=== PATIENT | male | born 1930 | race Caucasian/White ===

== ENCOUNTER 2016-09-04 06:08 | Observation (INO) | payer OTHER ==
--- NOTE | ~2016-09-04 | HP ---
History And Physical [facility] [id number] [place]. [address] NAME: JEFFERY LUGO : 34 STATUS : ADM Erin PAT#: [id number] AGE: 86 ADM/REG DATE : 09/04/16 MR#: [id number] REPORT SERV DATE: 09/04/16 DICTATED BY: SOFIE TOBIAS DATE: 09/04/16 REPORT STATUS : Draft TRANSCRIBED BY: MODL DATE: 09/04/16 DATE OF ADMISSION: 09/04/2016 POINT OF ENTRY: [facility] [place] Emergency Department. CHIEF COMPLAINT: Altered mental status, elevated blood pressure. HISTORY OF PRESENT ILLNESS: Mr. Lugo is an 86-year-old gentleman with a history of coronary artery disease with prior PCI, hypertension, history of stroke, as well as chronic kidney disease stage 3, who was brought to the emergency department today by family for reports of acute onset of altered mental status in the setting of elevated blood pressure. The patient was admitted to the Hospitalist Service in June of this year for very similar circumstances of elevated blood pressure and encephalopathy. It was ultimately felt that this was due to hypertensive encephalopathy and hypertensive emergency. With correction of the patient's blood pressure the patient's mental status slowly improved back to his baseline. Majority of history today is obtained by the patient's grandson who is at bedside as the patient is unable to provide any history to me at this time. He states that he was in his usual state of health until earlier on Saturday, when he started to notice that the patient was having multiple episodes of hot flashes. This is atypical symptom for him and his blood pressure is elevated. They checked his blood pressure multiple times throughout the day. Blood pressures were tubular ranging in systolics of 180s to 220s. Sharri did report that he did miss a single dose of Coreg on Saturday evening as the patient refused to take the medication. Sharri was then awoke at approximately 3 o'clock this morning by the sound of TV blurring, found his grandfather in front of the TV, very confused and altered. Initial evaluation in the emergency department notable for a blood pressure of 218/97. CT scan of the brain was negative for any acute changes. His creatinine was mildly elevated above baseline of 1.7, glucose is 256; troponin 0.17; white count of 12.9. Urinalysis is pending. Blood pressure did improve on its own without any intervention to systolics of 170s to 180s. The patient was subsequently admitted to the Hospitalist Service for further evaluation and management. REVIEW OF SYSTEMS: Unable to be obtained secondary to the patient's altered mental status. PREVIOUS MEDICAL HISTORY: 1. Coronary artery disease with prior PCI. 2. History of CVA. 3. Chronic kidney disease, stage 3. Baseline creatinine of approximately 1.3 to 1.5. 4. Insulin-dependent diabetes mellitus, type 2. Hemoglobin A1c of 8.9. 5. Nephrolithiasis. 6. BPH. 7. Hypertension. History And Physical [address] [address] NAME: JEFFERY LUGO : 32 STATUS : ADM Erin PAT#: [id number] AGE: 86 ADM/REG DATE : 09/04/16 MR#: [id number] REPORT SERV DATE: 09/04/16 DICTATED BY: SOFIE TOBIAS DATE: 09/04/16 REPORT STATUS : Draft TRANSCRIBED BY: YANIRA DATE: 09/04/16 8. 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 SURGICAL HISTORY: 1. Cholecystectomy. 2. Reynold holes. ALLERGIES: TO PENICILLIN. HOME MEDICATIONS: Pending at the time of dictation. SOCIAL HISTORY: He is a former smoker, quit many years ago. Denies any alcohol. Denies any illicits. His grandson lives with him and helps take care of him. FAMILY MEDICAL HISTORY: Unable to be obtained secondary to the patient's altered mental status, but according to previous [facility] history it looks like it is positive for diabetes; negative for heart disease or hyperlipidemia. LABS AND IMAGIN. White count is 12.9, hemoglobin is 15.7, hematocrit is 44.7, platelet count is 184, and INR 1.1. 2. Sodium is 138, potassium 3.9, chloride 100, carbon dioxide 28, BUN 30, creatinine 1.72, glucose is 256, calcium is 9.1, protein is 7.5, albumin is 3.3, bilirubin is 1.8, ALT is 18, AST 23, and alkaline phosphatase is 125. 3. Chest x-ray per my review shows no acute cardiopulmonary abnormalities. 4. EKG per my review shows normal sinus rhythm with some left axis deviation, left ventricular hypertrophy with some T-wave flattening, but no evidence of any acute ischemia or infarction. 5. CT scan of the brain shows pronounced chronic changes as well as several reynold holes in place, but no acute intracranial abnormality. 6. Urinalysis is pending at the time of dictation. 7. Troponin 0.17. PHYSICAL EXAMINATION: VITAL SIGNS: Blood pressure 218/97, pulse 80, respirations 16, saturating 95% on room air, temperature is 96.8, on recheck, blood pressure is now 197/84. GENERAL: The patient is awake, alert, and in no acute distress. Resting comfortably in bed. He is a well-developed, well-nourished, chronically ill-appearing, elderly male. Grandson is at bedside. HEENT: Atraumatic and normocephalic. Moist mucous membranes. Pupils equal, round, reactive to light and accommodation. Extraocular eye movements are intact. No scleral icterus. NECK: No jugular venous distention or carotid bruits. CARDIAC: Regular rate and rhythm. No murmurs, rubs, or gallops. Normal S1, S2. LUNGS: Clear to auscultation bilaterally. No wheezes, rhonchi, or crackles. ABDOMEN: Soft, nontender, and nondistended. Good bowel sounds. No rebound, guarding, or rigidity. EXTREMITIES: Warm and perfused. No cyanosis, clubbing, or edema. SKIN: Warm and dry. History And Physical [address] [address] NAME: JEFFERY LUGO : 32 STATUS : ADM Erin PAT#: [id number] AGE: 86 ADM/REG DATE : 09/04/16 MR#: [id number] REPORT SERV DATE: 09/04/16 DICTATED BY: SOFIE TOBIAS DATE: 09/04/16 REPORT STATUS : Draft TRANSCRIBED BY: MODL DATE: 09/04/16 PSYCH: Affect appropriate. NEURO: He is alert and oriented to person only. He is able to tell me the month and day of his birthday, but not the year. Cranial nerves 2 through 12 grossly intact. Speech is normal. Gait not assessed. The patient moves all extremities well. He has 5/5 strength in bilateral upper and lower extremity. ASSESSMENT AND PLAN: Mr. Lugo is an 86-year-old gentleman, who presents with acute onset of altered mental status in the setting of elevated blood pressure concerning for recurrent episode of hypertensive encephalopathy. PROBLEM LIST: 1. Encephalopathy, likely hypertensive. 2. Hypertensive urgency versus emergency. 3. Elevated troponin level. 4. Acute kidney injury on chronic kidney disease, stage 3. 5. Leukocytosis. 6. Insulin-dependent diabetes mellitus type 2 with hyperglycemia. PLAN: 1. Encephalopathy likely hypertensive. Workup thus far has been unremarkable for etiology of the patient's altered mental status. We will continue to evaluate by following up urinalysis, urine drug screen, ammonia level, B12, and thyroid function studies. CT scan of the brain was unremarkable. He got an MRI of the brain during his last admission, I will hold off on repeat MRI at this time. We will slowly bring his blood pressure down and observe for improvement in mental status. 2. Hypertensive emergency versus urgency. We will resume his home medications. Provide very gentle IV hydralazine p.r.n. for elevated blood pressure as it appears that his blood pressure dropped precipitously during his last admission in response to IV antihypertensive medications. 3. Elevated troponin level likely secondary to his elevated blood pressure as well as CKD. He denies any chest pain. EKG is not ischemic. Continue to trend out cardiac enzymes. 4. Leukocytosis of unclear etiology. Chest x-ray is clear. Checking procalcitonin as well as urinalysis. 5. Acute kidney injury on chronic kidney disease, stage 3. Avoid nephrotoxic medications. IV fluid hydration. 6. Insulin-dependent diabetes mellitus type 2 with hyperglycemia. Continue the patient's home medications, level 2 sliding scale. 7. DVT prophylaxis. Lovenox subcu. CODE STATUS: The patient wishes to be full code. JCB/MODL Sofie Tobias MD History And Physical [address] [address] NAME: JEFFERY LUGO : 32 STATUS : ADM Erin PAT#: [id number] AGE: 86 ADM/REG DATE : 09/04/16 MR#: [id number] REPORT SERV DATE: 09/04/16 DICTATED BY: SOFIE TOBIAS DATE: 09/04/16 REPORT STATUS : Draft TRANSCRIBED BY: YANIRA DATE: 09/04/16 / [id number] CC: Aidan Riddle Jr, MD Stanley Ireland, M.D.
--- NOTE | ~2016-09-04 | DS ---
Discharge Summary [facility] [address] [place]. [address] NAME: JEFFERY LUGO : 34 STATUS : DIS Erin PAT#: [id number] AGE: 86 ADM/REG DATE : 09/04/16 MR#: [id number] REPORT SERV DATE: 09/06/16 DICTATED BY: JR. RIDDLE WILLIAM JOHN DATE: 09/05/16 REPORT STATUS : Draft TRANSCRIBED BY: MODYulissa DATE: 09/05/16 ADMISSION DATE: 09/04/2016 DISCHARGE DATE: 09/05/2016 DISCHARGE DIAGNOSES: Include: 1. Hypertensive encephalopathy. 2. Urgent hypertension. 3. Elevated troponin with a flat curve in the setting of chronic kidney disease. 4. Acute kidney injury on chronic kidney disease, stage III. 5. 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 6. Hypokalemia. OPERATIONS/PROCEDURES AND TREATMENTS: Include: 1. CT of the brain done 09/04/2016, which showed old deep white matter changes, evidence of prior bur holes, atrophy, no acute pathology seen. 2. Chest x-ray done 09/04/2016, which showed no radiographic evidence of acute process. DISCHARGE MEDICATIONS: Include: 1. Aspirin 81 mg orally daily. 2. Lipitor 80 mg orally daily. 3. Coreg 12.5 mg orally twice a day. 4. Finasteride 5 mg orally at bedtime. 5. Neurontin 600 mg every eight hours. 6. Glargine insulin 10 units with breakfast. 7. Sliding scale Humalog insulin. 8. Imdur 30 mg orally daily. 9. Fish oil 1000 mg orally daily. 10.Prilosec 20 mg orally daily. 11.Flomax 0.4 mg at bedtime. 12.Hydralazine 10 mg every six hours. HOSPITAL COURSE: The patient was an 86-year-old white male, who presented to the emergency room on 09/04/2016 with altered mental status and elevated blood pressure. The patient had previously been in the Hospitalist Service for a similar episode. The patient lives with his grandson who gave most history and said that he was in his usual state of health when until he noticed the patient having multiple hot flashes which is unusual for him. He checked his blood pressure which was elevated throughout the day, systolics ranged from 180 to 220. The patient did miss a single dose of Coreg. The son and grandson then awakened at 3 in the morning with the sound of TV blaring, found his grandfather in front of the TV, very confused and altered. When the patient presented to the emergency room, his initial blood pressure was 218/97. Other than confusion, exam was otherwise largely unremarkable. Laboratory likewise was mostly unremarkable. He did have an elevated troponin in the setting of chronic kidney disease. For complete details, please see Dr. Jhaveri's excellent dictated history and physical. The patient was admitted to the hospital for encephalopathy due to hypertension. His blood Discharge Summary [facility] [address] [place]. [address] NAME: JEFFERY LUGO : 32 STATUS : DIS Erin PAT#: [id number] AGE: 86 ADM/REG DATE : 09/04/16 MR#: [id number] REPORT SERV DATE: 09/06/16 DICTATED BY: JR. RIDDLE WILLIAM JOHN DATE: 09/05/16 REPORT STATUS : Draft TRANSCRIBED BY: YANIRA DATE: 09/05/16 pressure was controlled with IV hydralazine. His Coreg was increased, and oral hydralazine was started. At discharge, his blood pressures were in the 160 systolic range. His encephalopathy cleared, and the patient was appropriate. Regarding the elevated troponin, serial troponins showed 0.17, 0.18, 0.17 with a flat curve in the setting of chronic kidney disease, this is felt to be due to chronic kidney disease. As of acute kidney on chronic kidney disease, this was stable. His BUN and creatinine improved at discharge due to a BUN of 30, creatinine 1.5. The patient also had hypokalemia, which was replaced. The patient will be discharged home today 09/05/2016. He will follow up with his primary care provider, Dr. Papito Paz. DIET: ADA. ACTIVITY: As tolerated. For discharge exam and laboratory, please see daily progress note. This discharge took 32 minutes for patient encounter, coordination of care, and documentation. ISAK/YANIRA Aidan Riddle Jr, MD / [id number] CC: Aidan Riddle Jr, MD Stanley Ireland, M.D.
[2016-09-04 05:25] LABS: BASOPHILS 0.1 %; BASOPHILS ABSOLUTE 0.01 10/3/uL (0.0-0.16); EOSINOPHILS 0 %; HEMATOCRIT 44.7 % (40.0-51.0); HEMOGLOBIN 15.7 g/dL (13.6-17.8); IMMATURE GRANULOCYTES 0.2 %; IMMATURE GRANULOCYTES ABSOLUTE 0.03 10/3/uL (0.0-0.11); LYMPHOCYTES 10.5 %; LYMPHOCYTES ABSOLUTE 1.35 10/3/uL (0.67-4.30); MEAN CORPUS HGB CONC 35.1 g/dL (32.0-36.0); MEAN CORPUSCULAR HEMOGLOB 30.8 pg (26.0-34.0); MEAN CORPUSCULAR VOLUME 87.8 fL (80-100); MEAN PLATELET VOLUME 9.9 fL (9.2-13.0); MONOCYTES 2.6 %; MONOCYTES ABSOLUTE 0.33 10/3/uL (0.21-1.20); NEUTROPHILS 86.6 %; NEUTROPHILS ABSOLUTE 11.19 10/3/uL (2.02-8.40); RBC DISTRIBUTION WIDTH 12.5 % (12.0-16.0); RED CELL COUNT 5.09 10/6/uL (4.7-6.1); WHITE BLOOD CELLS 12.9 10/3/uL (4.5-10.5)
[2016-09-04 05:27] LABS: MANUAL DIFF NO %; PLATELET COUNT 184 10/3/uL (150-400)
[2016-09-04 05:28] LABS: ER CBC TAT 0 Hrs 05 MinsNP
[2016-09-04 05:33] LABS: INTERNATIONAL NORMAL RATI 1.1 UNITS (-); PROTIME (NOT ORD) 14.2 SEC (12.0-14.5)
[2016-09-04 05:46] LABS: ALBUMIN 3.3 G/DL (3.5-5.0); ALKALINE PHOSPHATASE 125 U/L (45-117); CALCIUM, SERUM 9.1 MG/DL (8.5-10.4); CHLORIDE, SERUM 100 MMOL/L (96-112); CO2 (CARBON DIOXIDE) 28 MMOL/L (24-34); CREATININE 1.72 MG/DL (0.70-1.30); GFR AFRICAN AMERICAN 41 ML/MIN (>=60); GFR NON AFRICAN AMERICAN 36 ML/MIN (>=60); GLUCOSE, SERUM 256 MG/DL (60-99); SGPT(ALT) 18 U/L (5-65); SODIUM, SERUM 138 MMOL/L (135-148); TOTAL BILIRUBIN 1.8 MG/DL (0-1.2); TOTAL PROTEIN 7.5 G/DL (6.0-8.5)
[2016-09-04 05:47] LABS: A/G RATIO 0.8 (0.7-1.9); BUN (BLOOD UREA NITROGEN) 30 MG/DL (6-23); GLOBULIN 4.2 G/DL (2.5-4.1); POTASSIUM, SERUM 3.9 MMOL/L (3.5-5.3); SGOT(AST) 23 U/L (5-40); TROPONIN I 0.17 NG/ML (<0.05)
[~2016-09-04 06:08] MED LIST: ACTOS30 PO; ASAB PO; BUPAP1 TAB PO; CIP5 PO; COREG12 PO; COREG25 PO; COZAAR100 MG PO; DIL2TAB PO; FISH-EPA1000 MG PO; FLOMAX4 PO; FLONASE NAS; GENTEAL OP; GLUCOPHAGE1000 MG PO; HCTZ25B PO; HCTZ50B PO; HYDROCHLOROT12.5 MG PO; HYDROCHLOROT25 MG PO; HYT5 PO; IMDUR30 PO; ISOSORBIDE 30 MG PO; K-TABS10 MEQ PO; LANTUS SC; LIPITOR80 MG PO; LISINOPRIL40 MG PO; NEUR300 PO; NEUR600 PO; NORCO1 TA1 PO; NORCO1 TAB PO; NORV10 PO; NOVOLOG SC; PRILO PO; PROSCAR5 PO; SIMVASTATIN PO; T PO; TRAMADOL HCL50 MG OR; UTA OR; ZOCOR20 PO; ZOCOR40 PO; ZOCOR80 MG PO
[2016-09-04] MEDS ORDERED: FLOMAX4 PO (06:24)
[2016-09-04] MEDS ORDERED: COREG12 PO (06:25)
[2016-09-04] MEDS ORDERED: TRAZ50 PO (06:25)
[2016-09-04] MEDS ORDERED: COZ50 PO (06:28)
[2016-09-04] MEDS ORDERED: IMDUR30 PO (06:29)
[2016-09-04] MEDS ORDERED: PROSCAR5 PO (06:30)
[2016-09-04] MEDS ORDERED: LIPITOR80 MG PO (06:30)
[2016-09-04] MEDS ORDERED: NEUR600 PO (06:31)
[2016-09-04] MEDS ORDERED: PRILO PO (06:34)
[2016-09-04] MEDS ORDERED: ASAB PO (06:34)
[2016-09-04] MEDS ORDERED: FISH-EPA1000 MG PO (06:35)
[2016-09-04] MEDS ORDERED: DOCUSOFT S100 MG PO (06:37)
[2016-09-04] MEDS ORDERED: NOVOLOG SC (06:43)
[2016-09-04] MEDS ORDERED: LANTUS SC (06:43)
[2016-09-04 07:08] LABS: ASCORBIC ACID (UR NOT ORDER) NEG (NEG); BILIRUBIN, URINE NEGATIVE (NEG); ER URINALYSIS TAT 0 Hrs 10 Mins; KETONE, URINE 20 MG/DL (NEG); LEUKOCYTE ESTERASE(NOT OR NEG (NEG); NITRITE (URINE) NEG (NEG); WBC (NOT ORDERED) (RFLEX) 1 (0-5)
[2016-09-04 10:09] LABS: FOLATE 18.1 NG/ML (>5.2); FREE T4 1.23 NG/DL (0.76-1.46)
[2016-09-04 10:15] LABS: PROCALCITONIN < 0.05 ng/mL (<0.5)
[2016-09-04 11:59] LABS: CPK 41 U/L (0-200)
[2016-09-04 12:00] LABS: CK-MB 4.2 NG/ML
[2016-09-04 12:01] LABS: TROPONIN I 0.18 NG/ML (<0.05)
[2016-09-04 18:11] LABS: CK-MB 3.9 NG/ML; CPK 93 U/L (0-200); TROPONIN I 0.17 NG/ML (<0.05)
[2016-09-05 03:18] LABS: OSMOLALITY, URINE 493 MOSM/KG (50-1200)
[2016-09-05 03:24] LABS: AMPHETAMINES (NOT ORD) NEG (NEG); BARBITURATES (NOT ORDERED NEG (NEG); BENZODIAZEPINES (NOT ORD) NEG (NEG); CANNABINOIDS (THC) NEG (NEG); COCAINE (NOT ORDERED) NEG (NEG); OPIATES NEG (NEG); PHENCYCLIDINE(PCP) NEG (NEG); TRICYCLICS NEG (NEG)
[2016-09-05 03:27] LABS: SODIUM, URINE 12 MEQ/L
[2016-09-05 05:21] LABS: BASOPHILS 0.2 %; BASOPHILS ABSOLUTE 0.02 10/3/uL (0.0-0.16); EOSINOPHILS 0.6 %; EOSINOPHILS ABSOLUTE 0.06 10/3/uL (0.0-0.53); HEMOGLOBIN 13.3 g/dL (13.6-17.8); IMMATURE GRANULOCYTES 0.3 %; IMMATURE GRANULOCYTES ABSOLUTE 0.03 10/3/uL (0.0-0.11); LYMPHOCYTES ABSOLUTE 2.83 10/3/uL (0.67-4.30); MEAN CORPUS HGB CONC 34.2 g/dL (32.0-36.0); MEAN CORPUSCULAR VOLUME 87.8 fL (80-100); MEAN PLATELET VOLUME 10.2 fL (9.2-13.0); MONOCYTES 10.7 %; MONOCYTES ABSOLUTE 1.12 10/3/uL (0.21-1.20); NEUTROPHILS 61.2 %; NEUTROPHILS ABSOLUTE 6.42 10/3/uL (2.02-8.40); PLATELET COUNT 158 10/3/uL (150-400); RBC DISTRIBUTION WIDTH 12.9 % (12.0-16.0); RED CELL COUNT 4.43 10/6/uL (4.7-6.1); WHITE BLOOD CELLS 10.5 10/3/uL (4.5-10.5)
[2016-09-05 05:23] LABS: HEMATOCRIT 38.9 % (40.0-51.0); MANUAL DIFF NO %
[2016-09-05 05:38] LABS: ALBUMIN 2.7 G/DL (3.5-5.0); BUN (BLOOD UREA NITROGEN) 30 MG/DL (6-23); CALCIUM, SERUM 8.5 MG/DL (8.5-10.4); CHLORIDE, SERUM 108 MMOL/L (96-112); CO2 (CARBON DIOXIDE) 26 MMOL/L (24-34); GFR AFRICAN AMERICAN 49 ML/MIN (>=60); GFR NON AFRICAN AMERICAN 42 ML/MIN (>=60); GLUCOSE, SERUM 205 MG/DL (60-99); PHOSPHORUS, SERUM 2.2 MG/DL (2.5-4.5); POTASSIUM, SERUM 3.2 MMOL/L (3.5-5.3); SODIUM, SERUM 143 MMOL/L (135-148)
[2016-09-05] MEDS ORDERED: APRES10B PO (10:20)
== END 2016-09-05 15:25 | disposition home or self-care (01) ==
LOC: ER 06:08 → CDU1 06:46 → CDU2 07:16
PROVIDERS: Internal Medicine; Specialist
DX: I67.4 Hypertensive encephalopathy (principal); R41.82 Altered mental status, unspecified; I25.10 Atherosclerotic heart disease of native coronary artery without angina pectoris; D72.829 Elevated white blood cell count, unspecified; I12.9 Hypertensive chronic kidney disease with stage 1 through stage 4 chronic kidney disease, or unspecified chronic kidney disease; G62.9 Polyneuropathy, unspecified; N18.3 Chronic kidney disease, stage 3 (moderate); N17.9 Acute kidney failure, unspecified; E11.65 Type 2 diabetes mellitus with hyperglycemia; Z86.73 Personal history of transient ischemic attack (TIA), and cerebral infarction without residual deficits; E11.22 Type 2 diabetes mellitus with diabetic chronic kidney disease; E87.6 Hypokalemia; Z87.442 Personal history of urinary calculi; Z90.49 Acquired absence of other specified parts of digestive tract; Z98.890 Other specified postprocedural states; Z88.0 Allergy status to penicillin; Z87.891 Personal history of nicotine dependence
CPT/HCPCS: 70450; 71010; 80053; 80069; 80305; 81001; 82140; 82550; 82553; 82570; 82607; 82746; 82962; 83935; 84145; 84300; 84439; 84443; 84484; 85025; 85610; 85730; 93005; 96372; 96374; 99285; A9270-GY; G0378; J2405